=== PATIENT | male | born 1960 | race Caucasian/White ===

== ENCOUNTER → 2018-02-08 | Outpatient (CLI) | payer MEDICAID | LOC: CIMAGING 17:05 | PROVIDERS: ATTEND Family Medicine | DX: J18.9 Pneumonia, unspecified organism (principal); J90 Pleural effusion, not elsewhere classified | CPT/HCPCS: 71046-PO ==

== ENCOUNTER → 2018-03-24 | Outpatient (CLI) | payer MEDICAID | LOC: EDSTATUS 09:35 → CIMAGING 14:51 | PROVIDERS: ATTEND Family Medicine | DX: R53.83 Other fatigue (principal) | CPT/HCPCS: 36415-PO; 71046-PO; 80053-PO; 82306-PO; 82607-90; 84443-PO ==